=== PATIENT | male | born 2000 | race Caucasian/White ===

== ENCOUNTER 2025-03-25 18:17 | Observation (INO) | payer OTHER ==
[2025-03-25] MEDS: Diphtheria,Pertussis(Acell),Tetanus Vaccine 0.5 ML Syringe IM ONE (19:57)
[2025-03-25] MEDS ORDERED: Sodium Chloride 0.9% 10 ML Syringe FLUSH PRN (22:19)
[2025-03-25] MEDS ORDERED: fentaNYL 100 MCG/2 ML SDV ONE ×2 (22:36→23:12)
[2025-03-25] MEDS ORDERED: propofoL 500 MG/50 ML 50 ML ONE ×2 (22:36→23:43)
[2025-03-25] MEDS ORDERED: Midazolam 1 MG/ML 2 ML SDV ONE (22:36)
[2025-03-25] MEDS ORDERED: Propofol 200 MG/20 ML SDV ONE (22:42)
[2025-03-25] MEDS ORDERED: Succinylcholine 200 MG/10 ML MDV ONE (22:44)
[2025-03-25 22:52] LABS: BASOPHILS PERCENT AUTO 0.3 % (0.0-1.0); EOSINOPHILS ABSOLUTE AUTO 0.1 K/mm3 (0.0-0.4); EOSINOPHILS PERCENT AUTO 1.0 % (0.0-6.0); IMMATURE GRAN PERCENT AUTO 0.4 % (0.0-0.4); LYMPHOCYTES ABSOLUTE AUTO 2.1 K/mm3 (1.0-4.8); LYMPHOCYTES PERCENT AUTO 18.8 % (24.0-44.0); MEAN PLATELET VOLUME 8.8 fl (9.4-12.4); MONOCYTES ABSOLUTE AUTO 0.6 K/mm3 (0.0-0.8); MONOCYTES PERCENT AUTO 5.4 % (0.0-8.0); NEUTROPHILS ABSOLUTE AUTO 8.4 K/mm3 (1.8-7.7); NEUTROPHILS PERCENT AUTO 74.1 % (41.0-71.0); NRBC PERCENT 0.0 % (0.0-0.2); PLATELET COUNT,PLT 261 K/mm3 (150-400); RED BLOOD CELL COUNT 5.49 M/mm3 (4.52-5.90); WHITE BLOOD CELL COUNT,WBC 11.35 K/mm3 (3.9-11.3)
[2025-03-25 22:53] LABS: BASOPHILS ABSOLUTE AUTO 0.0 K/mm3 (0.0-0.2); IMMATURE GRAN ABSOLUTE AUTO 0.04 K/mm3 (0.00-0.05); NRBC ABSOLUTE 0.00 (0.00-0.02)
[2025-03-25] MEDS: metroNIDAZOLE/Normal Saline 500 MG in Premix Bag 1 BAG IV ONE (23:08)
[2025-03-25] MEDS ORDERED: Dexamethasone 4 MG/ML 5 ML MDV ONE (23:12)
[2025-03-25 23:13] LABS: A/G RATIO 0.9 (1-2); ALANINE AMINOTRANSFERASE,ALT 94.0 U/L (16-63); ASPARTATE AMNIOTRANSFERASE,AST 27.0 U/L (15-37); BILIRUBIN TOTAL 0.5 mg/dL (0.2-1.0); BLOOD UREA NITROGEN,BUN 12.0 mg/dL (7-18); CARBON DIOXIDE,CO2 27.0 mEq/L (21-32); CHLORIDE,CL 104.0 mEq/L (98-107); CREATININE 0.8 mg/dL (0.7-1.3); EST CRCL DRUG DOSING (CG) 121.72 mL/min; ESTIMATED GFR 125.0 mL/min (>60); GLUCOSE RANDOM 105.0 mg/dL (70-99); POTASSIUM,K 3.7 mEq/L (3.5-5.1); PROTEIN TOTAL,TP 7.4 g/dl (6.4-8.2); SODIUM,NA 137.0 mEq/L (136-145)
[2025-03-25] MEDS ORDERED: Labetalol 100 MG/20 ML MDV ONE (23:24)
[2025-03-25] MEDS ORDERED: Morphine PF 10 MG/10 ML SDV ONE (23:33)
[2025-03-25] MEDS ORDERED: EPINEPHrine 1 MG/ML SDV ONE (23:37)
[2025-03-25 23:44] LABS: APPEARANCE,URINE CLEAR (Clear); GLUCOSE,URINE NEGATIVE (Negative); OCCULT BLOOD,URINE NEGATIVE (Negative)
[2025-03-26] MEDS ORDERED: Sodium Chloride 0.9% 10 ML Syringe FLUSH PRN (01:33)
[2025-03-26] MEDS ORDERED: fentaNYL 100 MCG/2 ML SDV IVPUSH PRN (01:33)
[2025-03-26] MEDS ORDERED: Ondansetron 4 MG/2 ML SDV IVPUSH PRN (01:33)
[2025-03-26] MEDS ORDERED: Lactated Ringers 1,000 ML IV SCH (01:45)
[2025-03-26 02:04] VITALS: BP 110/59; PULSE 84
[2025-03-26] MEDS: Lactated Ringers 1,000 ML IV SCH (02:51)
[2025-03-26] MEDS: Ondansetron 4 MG Tab.DIS PO PRN (08:16)
[2025-03-26] MEDS ORDERED: Sodium Chloride 0.9% 10 ML Syringe FLUSH SCH (09:00)
== END 2025-03-26 09:58 | disposition home or self-care (01) ==
LOC: JD.ED 18:17 → JD.SDS 23:21 → JD.MS 03-26 02:19 → JD.SDS 03-26 02:45 → JD.MS 03-26 02:45
PROVIDERS: ADMIT Surgery; ATTEND Surgery
DX: S31.110A Laceration without foreign body of abdominal wall, right upper quadrant without penetration into peritoneal cavity, initial encounter (principal); W22.8XXA Striking against or struck by other objects, initial encounter
CPT/HCPCS: 36415; 49320; 74018; 74176; 80053; 81003; 83690; 85025; 90715; 94761; A9270; J0330; J1100; J1836; J1920; J2003; J2250; J2274; J2543; J2704; J3010; J7030; J7120; 00790; 90471; 96365; 96375; 99140; 99284-25; J0171; J0665; J3490